=== PATIENT | female | born 1945 | race Caucasian/White ===

== ENCOUNTER 2022-07-09 18:35 | Emergency (ER) | payer OTHER, MEDICARE | END 2022-07-10 01:13 | disposition short-term general hospital (02) | LOC: NAV ERS 18:35 | DX: S72.031A Displaced midcervical fracture of right femur, initial encounter for closed fracture (principal); J45.909 Unspecified asthma, uncomplicated; W01.0XXA Fall on same level from slipping, tripping and stumbling without subsequent striking against object, initial encounter | CPT/HCPCS: 72170 ==